=== PATIENT | female | born 1945 | race Asian ===

== ENCOUNTER 2022-04-20 15:49 | Emergency (ER) | payer MEDICARE ==
[~2022-04-20] VITALS: Ht 149.9 cm; Wt 77.3 kg
[2022-04-20 16:10] VITALS: BP 157/93
[2022-04-20 16:24] LABS: BASOPHILS % (AUTO) 1.5 % (0.0-2.0); EOSINOPHILS % (AUTO) 6.1 % (1.0-6.0); HEMATOCRIT 32.8 % (36-46); HEMOGLOBIN 10.3 g/dL (12.0-16.0); LYMPHOCYTES # (AUTO) 1.2 K/uL (1.0-4.8); LYMPHOCYTES % (AUTO) 20.9 % (22.0-44.0); MEAN CORPUSCULAR HEMOGLOBIN 26.5 pg (26.0-34.0); MEAN CORPUSCULAR HGB CONC 31.5 G/dL (31.0-37.0); MEAN CORPUSCULAR VOLUME 84 fL (80-100); MONOCYTES # (AUTO) 0.6 K/uL (0.1-1.0); MONOCYTES % (AUTO) 10.3 % (2.0-9.0); NEUTROPHILS # (AUTO) 3.4 K/uL (1.8-7.7); NEUTROPHILS % (AUTO) 61.2 % (40.0-70.0); PLATELET COUNT (AUTO) 195 K/uL (150-450); RED BLOOD CELL COUNT(AUTO) 3.89 MIL/uL (4.00-5.20); RED CELL DISTRIBUTION WIDTH 17.4 % (11.5-14.5)
[2022-04-20 16:35] LABS: CALCIUM, TOTAL 6.7 mg/dL (8.8-10.5); CREATININE 12.29 mg/dL (0.60-1.30); POTASSIUM 4.3 mmol/L (3.5-5.1)
[2022-04-20 16:42] LABS: ALBUMIN 2.3 g/dL (3.4-5.0); BILIRUBIN,TOTAL 0.4 mg/dL (0.1-1.0); TOTAL PROTEIN, SERUM 7.1 g/dL (6.4-8.2)
[2022-04-20] MEDS ORDERED: SODI650T33 PO (16:49)
[2022-04-20] MEDS ORDERED: LOVA20TA73 PO (16:49)
[2022-04-20] MEDS ORDERED: B CO1CAP6 PO (16:49)
[2022-04-20] MEDS ORDERED: CALC0.2521 PO (16:49)
[2022-04-20] MEDS ORDERED: AMLO-257 PO (16:49)
[2022-04-20] MEDS ORDERED: GENT30CR TP (16:49)
[2022-04-20] MEDS ORDERED: LINA5TAB PO (16:49)
[2022-04-20 17:05] LABS: PHOSPHORUS 9.2 mg/dL (2.5-4.9)
== END 2022-04-20 17:02 | disposition home or self-care (01) ==
LOC: EMS 15:56
DX: E83.51 Hypocalcemia (principal); E11.9 Type 2 diabetes mellitus without complications; I10 Essential (primary) hypertension; Z99.2 Dependence on renal dialysis
CPT/HCPCS: 80053; 82962; 83735; 84100; 85025; 99283

== ENCOUNTER 2024-12-29 19:30 | Emergency (ER) | payer MEDICARE, MEDICAID ==
[~2024-12-29] VITALS: Ht 152.4 cm; Wt 54.5 kg
[~2024-12-29 19:30] MED LIST: AMLO-257 PO; B CO1CAP6 PO; CALC0.2521 PO; GENT30CR TP; LINA5TAB PO; LOVA20TA73 PO; SODI650T33 PO
[2024-12-29 22:00] LABS: BASOPHILS % (AUTO) 1.6 % (0.0-2.0); EOSINOPHILS % (AUTO) 6.2 % (1.0-6.0); HEMATOCRIT 29.8 % (36-46); HEMOGLOBIN 9.9 g/dL (12.0-16.0); LYMPHOCYTES # (AUTO) 1.4 K/uL (1.0-4.8); LYMPHOCYTES % (AUTO) 25.2 % (22.0-44.0); MEAN CORPUSCULAR HEMOGLOBIN 31.9 pg (26.0-34.0); MEAN CORPUSCULAR HGB CONC 33.4 G/dL (31.0-37.0); MEAN CORPUSCULAR VOLUME 96 fL (80-100); MONOCYTES # (AUTO) 0.7 K/uL (0.1-1.0); MONOCYTES % (AUTO) 13.2 % (2.0-9.0); NEUTROPHILS % (AUTO) 53.8 % (40.0-70.0); PLATELET COUNT (AUTO) 154 K/uL (150-450); RED BLOOD CELL COUNT(AUTO) 3.11 MIL/uL (4.00-5.20); RED CELL DISTRIBUTION WIDTH 15.5 % (11.5-14.5); WHITE BLOOD COUNT (AUTO) 5.6 K/uL (4.5-11.0)
[2024-12-29 22:09] LABS: ANION GAP 10 mmol/L (8-16); CARBON DIOXIDE 25 mmol/L (22-29); CHLORIDE 103 mmol/L (98-107); CREATININE 3.34 mg/dL (0.60-1.30); GLOMERULAR FILTR. RATE CALC 13 mL/min (>60); GLUCOSE,RANDOM 138 mg/dL (70-110); SODIUM SERUM 138 mmol/L (136-145); UREA NITROGEN, BLOOD 22 mg/dL (7-18)
[2024-12-29 22:47] LABS: TROPONIN I-HIGH SENSITIVITY 47 ng/L (<51)
[2024-12-29 23:39] VITALS: BP 156/90; PULSE 88; RESP 20; TEMP 97.3; O2SAT 96
== END 2024-12-30 00:10 | disposition home or self-care (01) ==
LOC: EMS 19:30
DX: I12.0 Hypertensive chronic kidney disease with stage 5 chronic kidney disease or end stage renal disease (principal); E11.22 Type 2 diabetes mellitus with diabetic chronic kidney disease; N18.6 End stage renal disease; Z99.2 Dependence on renal dialysis; Z79.899 Other long term (current) drug therapy
CPT/HCPCS: 80048; 84484; 85025; 99283